=== PATIENT | male | born 1995 | race Caucasian/White ===

== ENCOUNTER 2017-05-24 22:48 | Emergency (ER) | payer MEDICAID ==
[~2017-05-24] VITALS: Ht 167.6 cm; Wt 63.5 kg
[2017-05-24 23:08] VITALS: BP 132/75
--- NOTE | 2017-05-25 00:28 | NUR ---
PT REFUSED ABG AT THIS TIME, DR. MARIJA CHAPPELL NOTIFIED
== END 2017-05-25 02:59 | disposition home or self-care (01) ==
LOC: ER 22:54
DX: J70.5 Respiratory conditions due to smoke inhalation (principal); Z60.2 Problems related to living alone
CPT/HCPCS: 71045; 99283; A4606; Z7610